=== PATIENT | female | born 1985 ===

== ENCOUNTER 2021-06-01 20:44 | Emergency (ER) | payer BC ==
[~2021-06-01] VITALS: Ht 157.5 cm; Wt 50.0 kg
[2021-06-02 00:15] VITALS: BP 117/81
== END 2021-06-02 00:33 | disposition home or self-care (01) ==
LOC: EMS 20:48
DX: O99.331 Smoking (tobacco) complicating pregnancy, first trimester (principal); O26.891 Other specified pregnancy related conditions, first trimester; F17.210 Nicotine dependence, cigarettes, uncomplicated; Z3A.01 Less than 8 weeks gestation of pregnancy
CPT/HCPCS: 76801; 76817; 84702; 99284; 99406